=== PATIENT | female | born 1970 | race Caucasian/White ===

== ENCOUNTER 2017-11-06 09:50 | Emergency (ER) | payer MEDICAID ==
[~2017-11-06] VITALS: Ht 149.9 cm; Wt 92.8 kg
[~2017-11-06 09:50] MED LIST: FERR325T PO; TRAM50 PO
[2017-11-06 10:06] VITALS: BP 153/84; PULSE 93; RESP 16; TEMP 98.2; O2SAT 97
[2017-11-06] MEDS ORDERED: blood pressure pill PO (10:25)
[2017-11-06] MEDS ORDERED: TOPI50TA7 PO (10:25)
[2017-11-06] MEDS ORDERED: MAGICADU2 SWISH-SPIT (10:54)
[2017-11-06] MEDS ORDERED: OSEL75 PO (10:54)
--- NOTE | 2017-11-06 10:58 | PD ---
HPI Chief Complaint: Cold / Flu Symptoms Time Seen by Provider: 10:47 Travel History International Travel<30 days: No Contact w/Intl Traveler<30days: No Traveled to known affect area: No History of Present Illness HPI 47-year-old female presents to the ED for evaluation of 36 hour history of body aches, sinus congestion, sore throat. She endorses chills but has not measured a fever at home. She endorses sick contacts, states that her daughter was recently diagnosed with the flu. She denies headaches, cough, nausea, vomiting. She did not receive this years flu shot. No treatment attempted at home. PFSH Past Medical History Hx Anticoagulant Therapy: No Anemia: Yes Cardiovascular Problems: Yes (HTN) Diabetes: No Diminished Hearing: No Hypertension: Yes Immunizations Current: Yes Migraines: Yes Tetanus Vaccination: Unknown Influenza Vaccination: No ?: Not LMP: "1 month ago" : 4 Para: 3 Miscarriage: 1 : 0 Tubal Ligation: Yes (2005) Past Surgical History Section: Yes (X 3) Social History Alcohol Use: No Tobacco Use: No Substance Use: No Allergies-Medications (Allergen,Severity, Reaction): Coded Allergies: No Known Allergies (Verified Adverse Reaction, Unknown, 11/06/17) Reported Meds & Prescriptions Reported Meds & Active Scripts Active Reported [blood pressure pill] 1 Tab PO DAILY Topiramate 50 Mg Tab 50 Mg PO DAILY Review of Systems Except as stated in HPI: all other systems reviewed are Neg Physical Exam Narrative GENERAL: Well-nourished, well-developed obese white female in no acute distress. SKIN: Warm and dry. HEAD: Normocephalic. Atraumatic. EYES: No scleral icterus. No injection or drainage. PERRLA. EOMI. ENT: Pearly [place]isco tympanic membranes bilaterally. Nasal mucosa is moist. Oropharynx without erythema, edema or exudate. NECK: Supple, trachea midline. No JVD or lymphadenopathy. CARDIOVASCULAR: Regular rate and rhythm without murmurs, gallops, or rubs. RESPIRATORY: Breath sounds clear and equal bilaterally. No accessory muscle use. GASTROINTESTINAL: Abdomen soft, non-tender, nondistended. + Bowel sounds MUSCULOSKELETAL: No cyanosis, or edema. BACK: Nontender without obvious deformity. No CVA tenderness. Data Data Last Documented VS Vital Signs Date Time Temp Pulse Resp B/P (MAP) Pulse Ox O2 Delivery O2 Flow Rate FiO2 11/06/17 10:06 98.2 93 16 153/84 (563) 97 MDM Medical Decision Making Medical Screen Exam Complete: Yes Emergency Medical Condition: Yes Differential Diagnosis Viral syndrome versus influenza versus exposure to influenza versus pharyngitis versus other Narrative Course 47-year-old female presents to the ED for evaluation of 36 hour history of body aches, sinus congestion, sore throat. She endorses chills but has not measured a fever at home. She endorses sick contacts, states that her daughter was recently diagnosed with the flu. She denies headaches, cough, nausea, vomiting. She did not receive this years flu shot. Vitals reviewed. On physical exam the patient is ill-appearing but exam is otherwise unremarkable. Given her exposure to the fluid will prescribe Tamiflu. She is prescribed Magic mouthwash swish and spit for her pharyngitis. She is instructed to rest, hydrate, continue to treat symptomatically, return for worsening symptoms, follow-up with her primary care provider. She is stable and discharged home. Diagnosis Primary Impression: Exposure to influenza Additional Impression: Pharyngitis Qualified Codes: J02.9 - Acute pharyngitis, unspecified Referrals: Primary Care Physician Patient Instructions: General Instructions, Influenza (ED), Pharyngitis (ED) Departure Forms: Tests/Procedures, Work Release Enter return to work date: Nov 11, 2017 Additional Instructions: Rest, hydrate. Push fluids such as sports drinks, Pedialyte, popsicles, clear broth. Take Tamiflu as prescribed. Continue with symptomatic treatment with OTC medications. Alternating Motrin and Tylenol every 4-6 hours as needed for continued fever. Increase handwashing frequently to avoid the spread of the virus to other family members and the community. Disinfect commonly touched surfaces such as light switches, microwaves, remote controls. Replace toothbrush at the end of this illness. Follow-up with the primary care provider this week. Return to the ED for any urgent or emergent medical condition. Med/Other Pt SpecificInfo: Prescription(s) given Scripts Ddxjpvoy-Uuxwifidqppkoqn-Gtkqbdwfq Liq (Magic Mouthwash Adult Liq) 120 Ml Susp 5 ML SWISH-SPIT ACHS for Sore Throat, #120 ML 0 Refills Each 5mL contains: Nystatin 200,000units, Diphenhydramine 4.25mg, Viscous Lidocaine 10mg, Guerra syrup 0.8 mL Prov: Alfa Garcia MD 11/06/17 Oseltamivir (Tamiflu) 75 Mg Cap 75 MG PO BID for Mgmt Viral Infection for 5 Days, #10 CAP 0 Refills Prov: Alfa Garcia MD 11/06/17 Disposition: 01 DISCHARGE HOME Condition: Stable Joycelyn Reveles Nov 06, 2017 10:58
== END 2017-11-06 11:06 | disposition home or self-care (01) ==
LOC: PHED 09:50
DX: J02.9 Acute pharyngitis, unspecified (principal); Z20.828 Contact with and (suspected) exposure to other viral communicable diseases; I10 Essential (primary) hypertension
CPT/HCPCS: 99284